=== PATIENT | male | born 1950 | race Hispanic/Latino ===

== ENCOUNTER 2016-05-03 15:13 | Inpatient (IN) | payer MEDICARE ==
[~2016-05-03] VITALS: Ht 162.6 cm; Wt 84.7 kg
[2016-05-03 15:17] VITALS: BP 154/88; PULSE 91; RESP 18; O2SAT 100
[2016-05-03 16:04] LABS: BASOPHILS % (AUTO) 0.2 % (0-3); EOSINOPHILS % (AUTO) 1.8 % (0-5); MONOCYTES % (AUTO) 7.4 % (4-12); Mean Corpuscular Hemoglobin 29.4 pg (27.0-35.0); Mean Corpuscular Volume 87.5 fL (81-100); NEUTROPHILS % (AUTO) 69.9 % (40-74); Platelet Count 252 bil/L (150-400)
[2016-05-03 16:29] VITALS: BP 154/70; PULSE 95; RESP 17; O2SAT 100
[2016-05-03 16:49] LABS: Magnesium 1.7 mg/dL (1.6-2.6)
--- NOTE | 2016-05-03 16:58 | DRSVH ---
PROCEDURE: X-RAY CHEST ONE VIEW, PORTABLE ([id number]) INDICATIONS: CHEST PAIN TECHNIQUE: One view of the chest was acquired. COMPARISON: None. FINDINGS: Surgical changes and devices: None. Lungs and pleura: No pleural effusions or pneumothorax. Lungs are clear. Mediastinum: Mediastinal contours appear normal. Heart size is normal. Bones and chest wall: No suspicious bony lesions. Overlying soft tissues appear unremarkable. IMPRESSION: Mildly reduced inspiratory volume, mild atelectasis left lung base, no pneumonia found, s ource of pain is not identified otherwise. Dictated by: Eugenio Cloud M.D. on 05/03/2016 at 16:56 Approved by: Eugenio Cloud M.D. on 05/03/2016 at 16:56
[2016-05-03 17:02] LABS: TROPONIN T < 0.010 ug/L (0.0-0.011)
[2016-05-03 18:01] VITALS: BP 140/67; PULSE 86; RESP 12; O2SAT 100
--- NOTE | 2016-05-03 19:08 | ED.REPORT ---
HPI-Chest Pain 40 and Over Date of Service May 03, 2016 ED Provider: Tate Pickard MD Pt is a 66 year old male with a hx of DM, HTN, high cholesterol and asthma presenting to the ED complaining of left chest pain onset around 1300 today lasting for about 1 hour. Associated symptoms include SOB. The pt states that the chest pain began while he was doing housework. Denies nausea, diaphoresis, cough, wheezing. The chest pain is described as a hot pressure. He reports similar symptoms 2 years ago which resolved on their own. Pt denies hx of heart problems. Pt medications: sertraline 50mg once per day, glipizide 10mg daily, lisinopril 20mg, metformin 1000 twice daily, PO pioglitazone 45mg 1/2 by mouth daily, acarbose 100mg 1/2 tablet 50mg daily before meals. Nursing Notes Stated Complaint: CHEST PAIN Chief Complaint: Chest Pain Nursing Notes Reviewed: Yes Allergies: Coded Allergies: No Known Allergies (Unverified , 05/03/16) General Time Seen by MD: 19:06 Chief Complaint Chest pain Hx Obtained From: Patient, Daughter Arrived By: Walk-in Sudden in Onset?: Yes Onset Occurred: 5 - 8 hours ago Symptom Duration: 1 - 4 hours Location: : Chest left Quality: Burning, Painful, Pressure Radiation: : Back: Does not radiate Severity: Current: No pain currently Severity: Maximum: Moderate Recent Healthcare: No recent doctor visit, No recent hospitalization Similar Sx Previous: Yes Risk Factors )( CAD Risk Stratification Diabetes mellitus Hyperlipidemia HypertensionNo Family history, No Known CAD, No Smoking Risk factors reviewed )( TAD Risk Stratification Hypertension Risk factors reviewed HEART Score HEART for MACE: Mod index of susp (1), Age 65 or over (2), 3+ CAD risk factors (2) Past Medical History Past Medical History Reports: Asthma, Diabetes mellitus, Hyperlipidemia, Hypertension Past Surgical History denies Smoking History Former Smoker (Quit many years ago) Ambulatory Status Independent Review of Systems Respiratory: Reports: Dyspnea on exertion, Shortness of breath, Denies: Non-productive cough, Wheezing Cardiovascular: Reports: Chest pain GI: Denies: Nausea, Vomiting Skin: Denies Diaphoresis Complete sys rev & neg: except as marked. Physical Exam Initial Vital Signs Vital Signs (First) Date Time Temp Pulse Resp B/P Pulse Ox O2 Delivery O2 Flow Rate FiO2 05/03/16 15:17 36.3 91 18 154/88 100 Room Air Initial VS: Reviewed Head / Eyes: Atraumatic, Normocephalic, PERRL ENT: Mucous membranes moist, Conjunctiva normal, No scleral icterus Extremities: Vascular intact, Neuro intact, No swelling, No tenderness Skin: Warm, Dry Neurologic: Alert, Oriented, Nonfocal Psychiatric: Mood/affect normal, Behavior normal, Normal thought content General/Constitutional: Awake, Alert, No acute distress, Well appearing Respiratory / Chest: Atraumatic, Breath sounds NL, Breath sounds = bilat, No respiratory distress Cardiovascular: Heart rate NL, Regular rhythm, Heart sounds NL, No gallop, No murmurs, No rubs Abdomen: Soft, Non-tender, BS normoactive Interpretation & Diagnostics Lab Results Interpretation Result Diagram: 05/03/16 1551 05/03/16 1551 Test 05/03/16 15:51 05/03/16 18:58 White Blood Count 12.2th/mm3 (3.8-10.1) Red Blood Count 3.85mil/mm3 (4.40-5.80) Hemoglobin 11.3g/dL (13.8-17.2) Hematocrit 33.7% (41.0-50.0) Mean Corpuscular Volume 87.5fL (81-100) Mean Corpuscular Hemoglobin 29.4pg (27.0-35.0) Mean Corpuscular Hemoglobin Concent 33.5% (32.0-37.0) Red Cell Distribution Width 12.5% (12.3-15.4) Platelet Count 252bil/L (150-400) Neutrophils (%) (Auto) 69.9% (40-74) Lymphocytes (%) (Auto) 20.5% (14-46) Monocytes (%) (Auto) 7.4% (4-12) Eosinophils (%) (Auto) 1.8% (0-5) Basophils (%) (Auto) 0.2% (0-3) Prothrombin Time 9.8sec (8.1-12.5) Prothromb Time International Ratio 0.92ratio Activated Partial Thromboplast Time 26.4sec (22.8-33.0) Sodium Level 136mEq/L (134-144) Potassium Level 4.8mEq/L (3.5-5.2) Chloride Level 97mEq/L (97-108) Carbon Dioxide Level 25mmol/L (18-29) Blood Urea Nitrogen 13mg/dL (8-27) Creatinine 0.58mg/dL (0.76-1.27) Estimat Glomerular Filtration Rate 149mL/min (>59) Glucose Level 215mg/dL (60-99) Calcium Level 9.0mg/dL (8.5-10.1) Magnesium Level 1.7mg/dL (1.6-2.6) Total Bilirubin 0.2mg/dL (0.0-1.2) Aspartate Amino Transf (AST/SGOT) 17U/L (0-50) Alanine Aminotransferase (ALT/SGPT) 21U/L (0-44) Alkaline Phosphatase 113U/L (25-160) Pro-B-Type Natriuretic Peptide 153.2pg/mL (0-376) Total Protein 6.8g/dL (6.4-8.4) Albumin 3.9g/dL (3.4-5.0) Thyroid Stimulating Hormone (TSH) 1.750uIU/mL (0.450-4.500) Hold Cardona Top Tube Received (Received) Troponin T < 0.010ug/L (0.0-0.011) ECG Interpretation Time: 16:30 Interpreted by: ED physician Normal ECG Interpretation: Normal ECG w/ rate of... (93), Normal sinus rhythm X-Ray Chest Interpretation Chest Xray Interpretation: IMPRESSION: Mildly reduced inspiratory volume, mild atelectasis left lung base, no pneumonia found, source of pain is not identified otherwise. Dictated by: Eugenio Cloud M.D. on 05/03/2016 at 16:56 View: Portable, 1 view Interpretation / Wet Read by: Interpret - Radiologist Re-Eval/Medical Decision Med Decision/Clinical Course 66-year-old diabetic with multiple cardiac risk factors presenting with an episode of chest pain compatible with angina. This is new onset. Initial ECG and troponin are reassuring however multiple risk factors and advanced age will admit for formal rule out and provocative testing given aspirin in the emergency department. Time of Eval: 19:20 Patient Status: Condition improved Re-Evaluation/Progress Note: Discussed medications and supplemental past medical history. Time of Eval: 19:27 Patient Status: Condition improved Re-Evaluation/Progress Note: Performed physical exam. The EKG was taken after chest pain had resolved. Time of Eval: 20:09 Patient Status: Condition improved Re-Evaluation/Progress Note: Discussed repeat troponin and plan for admission. Pt understands and agrees. Consultation : Referral / Consult Name: Rosemarie Malone MD Consulted With: Hospitalist Call Returned at: 20:12 Equipment Processer Storage: Will see patient, Agrees with plan, Accepts admit Counseled Regarding: Diagnosis, Lab results, Need for follow-up, When/why to return to ED Discharge & Departure Primary Impression: Chest pain Chest pain type: unspecified Qualified Code: R07.9 - Chest pain, unspecified Disposition: ADMITTED TO HOSPITAL Discharge Condition All VS Reviewed: Yes Condition: Improved Referrals: John Carroll MD (PCP) Angelinaibaraceli Attestation Portions of this note were transcribed by Dayami Penny. I, Dr. Pickard personally performed the history, physical exam and medical decision-making; I reviewed and confirmed the accuracy of the information in the transcribed note. Signed by : Nato Mi, 05/03/16 and 2010. copies to: John Carroll MD, Donald L MD May 03, 2016 19:08 DAYAMI PENNY May 03, 2016 19:19
[2016-05-03] MEDS ORDERED: Alum-Mag Hydrox-Simeth 30 mL Suspension PO PRN (20:50)
[2016-05-03] MEDS ORDERED: Polyethylene Glycol (PEG) 17 Gm Powder PO PRN (20:50)
[2016-05-03] MEDS ORDERED: Atropine 1 mg/10 mL (Code) Syringe IVPUSH PRN (20:50)
[2016-05-03] MEDS ORDERED: Senna-Docusate 8.6-50 mg Tablet PO PRN (20:50)
[2016-05-03] MEDS ORDERED: Ondansetron 2 mg/mL 2 mL Inj IVPUSH PRN (20:50)
[2016-05-03 21:17] LABS: INR 0.92 ratio
[2016-05-03 21:38] VITALS: BP 146/65; PULSE 83; RESP 19; O2SAT 95
--- NOTE | 2016-05-03 21:51 | PCM.HPMED ---
Subjective Date of Service May 03, 2016 Primary Provider: Admitting Physician: Primary Care Physician: John Carroll MD Attending Physician: Admit Status: From the Emergency Department, 23-Hour Observation, [facility] Telemetry Chief Complaint: Chest pain History of Present Illness: This is a 66-year-old male who has a history of type II diabetes hypertension asthma who presents to the emergency room with left-sided chest pain starting about 1 PM and lasting for about an hour. He did have some shortness of breath with it. He notes he was kind of doing some cleaning around the house when this occurred. He had no nausea with it no diaphoresis. He did feel well lightheaded with this. He was not worse with movement or inspiration. No prior history of similar. By the time the patient came here pain had resolved. Evaluation in the emergency room includes clonidine which was less than 0.010 EKG shows sinus rhythm at a rate of 93 no acute abnormalities noted. X-ray shows mildly reduced inspiratory volume mild atelectasis of the left lung base no pneumonia seen. Review of Systems: Patient denies any fevers chills or cough. All other review of systems are reviewed and are negative except for as in history of present illness. Allergies Coded Allergies: No Known Allergies (Unverified , 05/03/16) Home Medications Pt medications: sertraline 50mg once per day, glipizide 10mg daily, lisinopril 20mg, metformin 1000 twice daily, PO pioglitazone 45mg 1/2 by mouth daily, acarbose 100mg 1/2 tablet 50mg daily before meals. PMH Past Medical History Reports: Asthma, Diabetes mellitus, Hyperlipidemia, Hypertension Past Surgical History denies Social History Hx Alcohol Use: No Hx Substance Use: No Smoking Status: Former Smoker (Quit many years ago) Living Arrangement: with Family Exam Vital Signs Vital Sign - Last Date Time Temp Pulse Resp B/P Pulse Ox O2 Delivery O2 Flow Rate FiO2 05/03/16 21:38 83 19 146/65 95 Room Air 05/03/16 15:17 36.3 Exam Constitutional: Elderly man in no acute distress Head: Normocephalic atraumatic Eyes: PERRLA DC EOMI Mouth: No lesions Neck: Carotids 2+ over 4 without bruits bilaterally Chest: Clear to auscultation Cor: Regular rate and rhythm S1-S2 without murmur Abdomen: Soft nontender bowel sounds present Extremities: No pedal edema noted Skin: No rashes Psych: Mood and affect are appropriate Neuro: Alert and oriented 3, motor strength is intact bilaterally Lab and Diagnostics Labs Laboratory Tests 72 Hours Test 05/03/16 15:51 05/03/16 18:58 White Blood Count 12.2th/mm3 (3.8-10.1) Red Blood Count 3.85mil/mm3 (4.40-5.80) Hemoglobin 11.3g/dL (13.8-17.2) Hematocrit 33.7% (41.0-50.0) Mean Corpuscular Volume 87.5fL (81-100) Mean Corpuscular Hemoglobin 29.4pg (27.0-35.0) Mean Corpuscular Hemoglobin Concent 33.5% (32.0-37.0) Red Cell Distribution Width 12.5% (12.3-15.4) Platelet Count 252bil/L (150-400) Neutrophils (%) (Auto) 69.9% (40-74) Lymphocytes (%) (Auto) 20.5% (14-46) Monocytes (%) (Auto) 7.4% (4-12) Eosinophils (%) (Auto) 1.8% (0-5) Basophils (%) (Auto) 0.2% (0-3) Prothrombin Time 9.8sec (8.1-12.5) Prothromb Time International Ratio 0.92ratio Activated Partial Thromboplast Time 26.4sec (22.8-33.0) Sodium Level 136mEq/L (134-144) Potassium Level 4.8mEq/L (3.5-5.2) Chloride Level 97mEq/L (97-108) Carbon Dioxide Level 25mmol/L (18-29) Blood Urea Nitrogen 13mg/dL (8-27) Creatinine 0.58mg/dL (0.76-1.27) Estimat Glomerular Filtration Rate 149mL/min (>59) Glucose Level 215mg/dL (60-99) Calcium Level 9.0mg/dL (8.5-10.1) Magnesium Level 1.7mg/dL (1.6-2.6) Total Bilirubin 0.2mg/dL (0.0-1.2) Aspartate Amino Transf (AST/SGOT) 17U/L (0-50) Alanine Aminotransferase (ALT/SGPT) 21U/L (0-44) Alkaline Phosphatase 113U/L (25-160) Troponin T < 0.010ug/L (0.0-0.011) < 0.010ug/L (0.0-0.011) Pro-B-Type Natriuretic Peptide 153.2pg/mL (0-376) Total Protein 6.8g/dL (6.4-8.4) Albumin 3.9g/dL (3.4-5.0) Thyroid Stimulating Hormone (TSH) 1.750uIU/mL (0.450-4.500) Hold Cardona Top Tube Received (Received) Result Diagram: 05/03/16 1551 05/03/16 1551 X-Rays, CTs and MRIs Patient Name: SHAD LOU MR#: [id number] Location: [facility] [place] Ordering Phys: DOC, ED Date of Service: 05/03/16 1531 PROCEDURE: X-RAY CHEST ONE VIEW, PORTABLE ([id number]) INDICATIONS: CHEST PAIN TECHNIQUE: One view of the chest was acquired. COMPARISON: None. FINDINGS: Surgical changes and devices: None. Lungs and pleura: No pleural effusions or pneumothorax. Lungs are clear. Mediastinum: Mediastinal contours appear normal. Heart size is normal. Bones and chest wall: No suspicious bony lesions. Overlying soft tissues appear unremarkable. IMPRESSION: Mildly reduced inspiratory volume, mild atelectasis left lung base, no pneumonia found, source of pain is not identified otherwise. Dictated by: Eugenio Cloud M.D. on 05/03/2016 at 16:56 Approved by: Eugenio Cloud M.D. on 05/03/2016 at 16:56 Assessment & Plan # Chest pain, acute, present on admission Check serial opponents Echocardiogram in a.m. Pharmacological nuclear stress test in a.m. Check fasting lipid panel # Type II diabetes, chronic, present on admission Placed on subcutaneous insulin protocol and check 4 times a day blood sugars Check hemoglobin A1c # Hypertension, chronic, present on admission Monitor blood pressures while here # DVT prophylaxis Placed on subcutaneous prophylactic anticoagulant # CODE STATUS Patient is full code. Pain Evaluation: Adequate Pain Control VTE Prophylaxis: Sub-Q Heparin (Unfractionated), Other Resuscitation Status: CPR: Attempt Resuscitation Time spent 60 minutes Kubisty,Rosemarie A MD May 03, 2016 21:51
[2016-05-04] VITALS (9 sets, daily range): BP systolic 147–181; BP diastolic 61–84; PULSE 74–88; RESP 16–19; O2SAT 95–99
[2016-05-04] MEDS: Sodium Chloride LOK Flush 10 mL Syringe IVFLUSH SCH ×4 (00:30→23:49)
[2016-05-04] MEDS: 0.9% Sodium Chloride 1,000 ML IV SCH ×3 (00:30→21:47)
[2016-05-04 02:11] LABS: BASOPHILS % (AUTO) 0.2 % (0-3); EOSINOPHILS % (AUTO) 1.8 % (0-5); MONOCYTES % (AUTO) 7.3 % (4-12); Mean Corpuscular Hemoglobin 29.9 pg (27.0-35.0); Mean Corpuscular Volume 87.2 fL (81-100); NEUTROPHILS % (AUTO) 70.8 % (40-74); Platelet Count 247 bil/L (150-400)
[2016-05-04 03:00] LABS: TROPONIN T 0.01 ug/L (0.0-0.011)
[2016-05-04] MEDS: Insulin Human REGular 300 Unit/3 mL Inj SUBQ SCH ×5 (04:00→22:04)
--- NOTE | 2016-05-04 05:09 | NUR ---
Uneventful night Pt had no c/o chest pain, nausea or generalized discomfort. Frequent care checks performed.
--- NOTE | 2016-05-04 10:41 | DRSVH ---
[facility] [address] [place] [address] Echocardiogram Report Name: CLYDE LOU MStudy Date: 05/04/2016 Height: 64 in Hospital Exam Location: [facility] Weight: 192 lb Gender: Male BSA: 1.9 m2 : 1950 Age: 66 yrs BP: 155/66 mmHg Reason For Study: CHEST PAIN Ordering Physician: HOSPITALIST [facility] Performed By: Adam Ruth Referring Physician: Dr. John Carroll Interpretation Summary The left ventricle is normal in size. The ejection fraction is estimated to be 60-65%. There are no focal wall motion abnormalities. The right ventricle is normal in size and function. The right ventricular systolic pressure is estimated at 35 mmHg assuming a right atrial pressure of 3 mm Hg. Both atria are normal in size. There is no significant valvular heart disease. The aortic root is normal size. Procedure: A two-dimensional transthoracic echocardiogram with color flow and Doppler was performed. The study quality was technically adequate. There is no prior echocardiogram noted for this patient. The patient was in normal sinus rhythm during the exam. Left Ventricle: The left ventricle is normal in size. There is normal left ventricular wall thickness. The ejection fraction is estimated to be 60-65%. There are no focal wall motion abnormalities. Right Ventricle: The right ventricle is normal in size and function. Atria: Both atria are normal in size. The interatrial septum is intact with no evidence for an atrial septal defect. Mitral Valve: The mitral valve is normal in structure and function. There is mild mitral annular calcification. There is mild mitral regurgitation. Aortic Valve: The aortic valve is mildly calcified. There is discrete nodular thickening of the left coronary cusp. There is trace aortic regurgitation. Tricuspid Valve: The tricuspid valve is normal in structure and function. There is mild tricuspid regurgitation. The right ventricular systolic pressure is estimated at 35 mmHg assuming a right atrial pressure of 3 mm Hg. Pulmonic Valve: The pulmonic valve is not well visualized. There is no significant valvular heart disease. Great Vessels: The aortic root is normal size. The dimensions of the ascending aorta are normal. The aortic arch is normal in size. The pulmonary artery is normal size. The IVC is of normal diameter and collapses greater than 50% with a sniff. This suggests a low right atrial pressure of 3 mm Hg. Pericardium/ Pleura There is no pericardial effusion. There is no pleural effusion. MMode/2D Measurements & Calculations LVIDd: 4.4 cm LA dimension: 3.4 cm RA long axis Ao root diam: 3.6 cm LVIDs: 3.3 cm Aortic Jxn: 2.9 cm FS: 25.3 % LA A2 area: 18.4 cm RA area asc Aorta Diam EPSS: 0.70 cm LA A4 area: 22.4 cm IVSd: 0.98 cm LA length (vol) : 13.3 cm Ao Arch Diam LVPWd: 0.97 cm RA vol (Proximal trans.) LA vol: 59.5 ml : 34.8 ml LA vol index RA : 18.1 mm2 IVC diam: 1.4 cm LV kulkarni. diameter/BSALV sys. diameter/BSA (cm/m^2): 2.3 (cm/m^2): 1.7 Doppler Measurements & Calculations Ao V2 max MV E max ra MV E/A: 0.87 TR max ra: 284.0 cm/sec : 147.1 cm/sec : 78.4 cm/sec Pulm A Revs Dur TR max P.3 mmHg Ao max PG MV A max ra PA V2 max: 89.4 cm/sec : 8.7 mmHg : 89.7 cm/sec MV A dur PA mean P.8 mmHg Ao mean PG : 0.11 sec PA Accel Time: 0.08 sec : 4.5 mmHg MV dec time Ao V2 mean PA V2 mean Pulm A Revs Dur - MV A : 0.20 sec : 101.3 cm/sec : 64.8 cm/sec Dur: -0.01 msec Ao V2 VTI: 32.6 cmPA pr(Accel) : 41.6 mmHg Reading Physician:SARAH
[2016-05-04] MEDS ORDERED: LISI-567 PO (12:15)
[2016-05-04] MEDS ORDERED: METF1000 PO (12:15)
[2016-05-04] MEDS ORDERED: SERT50TA9 PO (12:15)
[2016-05-04] MEDS ORDERED: GLIP10TA10 PO (12:15)
[2016-05-04] MEDS ORDERED: ACAR100T2 PO (12:15)
--- NOTE | 2016-05-04 15:40 | NUR ---
spiritual care: [facility]
--- NOTE | 2016-05-04 16:26 | NUR ---
Social Work: Initial Assessment Data: Pt is a 66 y/o male admitted for chest pain resolved. Pt's PCP is Dr Carroll, pt's insurance is Medicare. Readmit score is 2. EMR reviewed. RECRUITMENT OFFICER met with pt at bedside with head of biology. Role explained. Pt states that he lives with his family in a single story home where he uses a cane and no other DME. Pt reports that he does not have a DPOA and declined information. Pt states that he does not drive, has no history of HH or SNF, no LTC or VA benefits, and is not a caregiver for another. No d/c planning needs anticipated at this time. RECRUITMENT OFFICER will continue to follow if needs arise. Assessment: Pt who is independent at baseline. Cane at base. Plan: Pt will d/c home via POV with family members. No d/c planning needs anticipated at this time. RECRUITMENT OFFICER will continue to follow if needs arise. ABRAM Graham Addendum: 05/04/16 at 1628 by JAME JARRETT Amended: Links added.
--- NOTE | 2016-05-04 17:42 | NUR ---
Case Management: Observation Brochure provided and explained to patient and both daughters at 1540, they interpreted for patient. Pt informed me he does have a supplemental insurance--and gave me a card. I brought that to registration and it was deemed only for prescriptions. I went back to room with Observation Brochure in Korean at 1650. I also informed them the [employer] was only for Rx. I gave them the [employer] phone number [phone] for them to pursue a supplemental. I also provided them with a [facility] Care Form in Korean. All questions answered. Leanna Villagran, RN
--- NOTE | 2016-05-04 18:16 | NUR ---
Hypertension patient had the resting portion of his cardiac stress test today, but was unable to complete the stress portion due to high blood pressure. patient has not had his regular dose of Lisinopril since 05/03/2016 am. patient also reported feeling anxious during the test which may have contributed to his elevated BP. Dr Morocho notified and started patient on his home dose of lisinopril and was given h a dose this afternoon. patient denies CP/SOB during shift today. continue to monitor.
--- NOTE | 2016-05-04 20:14 | NUR ---
dinner metformin and glipizide at time of this shift either medications given called pharm and they suggested both be held r/t pt had resting mibi today and will have stress mibi in AM. pts BG at dinner was 200 according to report.
--- NOTE | 2016-05-04 23:58 | PCM.PNMED ---
Subjective Date of Service May 04, 2016 Subjective Patient developed high blood pressure during the stress test today and final stress testing will be postponed until tomorrow morning. He is quite apprehensive about the test. Otherwise he has had no further chest pain and is quite comfortable. Exam Vital Signs Vital Sign - Last Date Time Temp Pulse Resp B/P Pulse Ox O2 Delivery O2 Flow Rate FiO2 05/04/16 19:15 37.1 85 19 158/76 97 Room Air Intake and Output 05/03/16 05/03/16 05/04/16 Cumulative From/Thru 15:00 23:00 07:00 05/03/16 15:17 - 05/04/16 06:46 Intake Total 208 ml 208 ml Output Total 925 ml 925 ml Balance -717 ml -717 ml Intake Oral 0 ml 0 ml IV Total 208 ml 208 ml Output Urine Total 925 ml 925 ml Exam General: Patient is in no apparent distress laying supine in bed HEENT: Head is atraumatic normocephalic. Eyes: Pupils are equally round and reactive to light and accommodation. Extraocular muscles are intact. Sclera are white anicteric. Subconjunctival mucosa is pink. Ears and nose are unremarkable. Oropharynx: There is no mucosal lesions, there is no thrush, there is no pharyngitis. Neck: Is supple, there are no nodes, or masses or tenderness. Chest: Is clear to auscultation and percussion. There are no rales, rhonchi, wheezes or rubs. Heart: Rate, rhythm is regular. There is no murmur, rub or gallop. Abdomen: Good bowel sounds are present. Abdomen is soft, nontender, no organomegaly or masses were appreciated. Extremities: Are symmetrical and well perfused. There is no edema, there is no cellulitis, no rash. Neurologic: There are no focal neurological deficits. Cranial nerves II through XII are intact. There are no sensory or motor deficits. Psychiatric: Patients mood is calm and shows no sign of agitation. Genital: Deferred Rectal: Deferred Lab and Diagnostics Result Diagram: 05/04/1614605/04/16146 X-Rays, CTs and MRIs Patient Name: SHAD LOU MR#: [id number] [place] [facility] [place] Phys: DOC, ED Date of Service: 05/03/16 1531 PROCEDURE: X-RAY CHEST ONE VIEW, PORTABLE ([id number]) INDICATIONS: CHEST PAIN TECHNIQUE: One view of the chest was acquired. COMPARISON: None. FINDINGS: Surgical changes and devices: None. Lungs and pleura: No pleural effusions or pneumothorax. Lungs are clear. Mediastinum: Mediastinal contours appear normal. Heart size is normal. Bones and chest wall: No suspicious bony lesions. Overlying soft tissues appear unremarkable. IMPRESSION: Mildly reduced inspiratory volume, mild atelectasis left lung base, no pneumonia found, source of pain is not identified otherwise. Dictated by: Eugenio Cloud M.D. on 05/03/2016 at 16:56 Approved by: Eugenio Cloud M.D. on 05/03/2016 at 16:56 Cardiac Echo Impressions Echocardiogram Report Name: CLYDE LOU MStudy Date: 05/04/2016 Height: 64 in Hospital Exam Location: [facility] Weight: 192 lb Gender: Male BSA: 1.9 m2 : 1950 Age: 66 yrs BP: 155/66 mmHg Reason For Study: CHEST PAIN Ordering Physician: HOSPITALIST [facility] Performed By: Adam Ruth Referring Physician: Dr. John Carroll Interpretation Summary The left ventricle is normal in size. The ejection fraction is estimated to be 60-65%. There are no focal wall motion abnormalities. The right ventricle is normal in size and function. The right ventricular systolic pressure is estimated at 35 mmHg assuming a right atrial pressure of 3 mm Hg. Both atria are normal in size. There is no significant valvular heart disease. The aortic root is normal size. Assessment & Plan This is a 66-year-old male who has a history of type II diabetes hypertension asthma who presents to the emergency room with left-sided chest pain starting about 1 PM and lasting for about an hour. He did have some shortness of breath with it. He notes he was kind of doing some cleaning around the house when this occurred. He had no nausea with it no diaphoresis. He did feel well lightheaded with this. He was not worse with movement or inspiration. No prior history of similar. By the time the patient came here pain had resolved. Evaluation in the emergency room includes clonidine which was less than 0.010 EKG shows sinus rhythm at a rate of 93 no acute abnormalities noted. X-ray shows mildly reduced inspiratory volume mild atelectasis of the left lung base no pneumonia seen. # Chest pain, acute, present on admission Check serial troponins which are negative so far. Echocardiogram is unremarkable so far. Pharmacological nuclear stress test in a.m. patient to complete the final portion of the study in a.m. Check fasting lipid panel # Type II diabetes, chronic, present on admission Placed on subcutaneous insulin protocol and check 4 times a day blood sugars Check hemoglobin A1c # Hypertension, chronic, present on admission Monitor blood pressures while here Start home medications today. # DVT prophylaxis Placed on subcutaneous prophylactic anticoagulant # CODE STATUS Patient is full code. Disposition: Possible discharge home tomorrow after stress test is complete. VTE Prophylaxis: Sub-Q Heparin (Unfractionated), Other VTE Mechanical Devices: Intermittant Pneumatic CD Resuscitation Status: CPR: Attempt Resuscitation [place] MD May 04, 2016 23:58
[2016-05-05] VITALS (9 sets, daily range): BP systolic 128–169; BP diastolic 71–99; PULSE 80–90; RESP 18; O2SAT 96–99
[2016-05-05] MEDS: hydrALAZINE 20 mg/mL Inj IV PRN ×2 (00:39→11:32)
--- NOTE | 2016-05-05 01:15 | NUR ---
hypertension pts BP 174/80 on right side and 168/79 on left side called MD received order for hydralazine 10mg IV q4 hours PRN for SBP greater 155 and DBP greater then 90, gave hydralazine and BP down to 154/71. will cont to monitor
[2016-05-05 03:23] LABS: APPEARANCE,URINE CLEAR (CLEAR,HAZY); COLOR,URINE YELLOW (YELLOW); OCCULT BLOOD,URINE NEGATIVE (NEGATIVE); UROBILINOGEN,URINE NORMAL (NORMAL)
[2016-05-05] MEDS: 0.9% Sodium Chloride 1,000 ML IV SCH (03:55)
--- NOTE | 2016-05-05 05:28 | NUR ---
activity pt with neuropathy in his feet he wanted to ambulate in the halls. pt up SBA tolerating walking the halls well. pt stating his feet feeling better but requesting to have SCDs off.
[2016-05-05 06:14] LABS: BASOPHILS % (AUTO) 0.4 % (0-3); EOSINOPHILS % (AUTO) 1.3 % (0-5); MONOCYTES % (AUTO) 8.2 % (4-12); Mean Corpuscular Hemoglobin 29.7 pg (27.0-35.0); Mean Corpuscular Volume 87.6 fL (81-100); NEUTROPHILS % (AUTO) 68.9 % (40-74); Platelet Count 220 bil/L (150-400)
[2016-05-05 06:32] LABS: TROPONIN T 0.01 ug/L (0.0-0.011)
[2016-05-05 06:43] LABS: Magnesium 1.8 mg/dL (1.6-2.6)
[2016-05-05] MEDS: Insulin Human REGular 300 Unit/3 mL Inj SUBQ SCH ×4 (07:30→21:08)
[2016-05-05] MEDS: Sodium Chloride LOK Flush 10 mL Syringe IVFLUSH SCH ×3 (08:30→23:45)
--- NOTE | 2016-05-05 10:02 | NUR ---
Test Pt has the rest of his stress test today at 12pm, pt will need BP prior to going down to CVL lab to ensure that his BP is not elevated. Pt updated with plan, family updated with plan.
--- NOTE | 2016-05-05 16:11 | DRSVH ---
PROCEDURE: 1 DAY PHARMACOLOGICAL STRESS TEST Rest and pharmacological stress myocardial perfusion SPECT with gated imaging and ejection fraction RADIOPHARMACEUTICAL: 11.1 mCi Tc-99m tetrafosmin IV at rest and 31.8 mCi Tc-99m tetrafosmin IV at pea k effect of pharmacological stress. A ohm-ffd-hhwwooux was performed. INDICATIONS: CHEST PAIN TECHNIQUE: Radiopharmaceutical was injected at peak stress test, and also at rest. SPECT images wer e obtained. SPECT myocardial perfusion images were displayed in short axis, horizontal long axis, an d vertical long axis views. Gated images were reviewed using [employer] software. COMPARISON: None. CARDIAC STRESS: A pharmacologic stress test was performed under the supervision of an attending staff, using an infus ion of Regadenoson. Hemodynamic data: There is normal blood pressure and heart rate response to pharmacologic stress. Symptoms: The patient denied anginal chest pain. Aminophylline: None EKG: No diagnostic changes of ischemia; no ectopy. FINDINGS: Raw data: There is good myocardial uptake of radiotracer. No significant motion artifacts. Left ventricle function: Gated images demonstrate possible hypokinesis along the inferolateral wall. Left ventricle resting end diastolic volume is 83 mL. Left ventricle stress ejection fraction is 60 %; normal range is above 45%. Myocardial perfusion: On the supine stress images, there is a moderate sized perfusion defect along the inferolateral wall with at least moderate intensity. There is also a small perfusion defect at th e apex with mild intensity. On the supine resting images the perfusion defect along the inferolateral wall that does not improve but has not resolved completely. The prone stress imaging cyst shows impr ovement in comparison to the supine stress images but does not resolved completely. IMPRESSION: Probably abnormal myocardial perfusion study. There is a persistent perfusion defect along the infero lateral wall with improvement from stress to rest as well as apical perfusion defect that is small in size and no evidence of reversibility. Prone imaging does not show any significant improvement and t here is questionable hypokinesis along the inferolateral wall. Given this, findings are possibly cons istent with ischemia/infarction involving the RCA/circumflex distribution. Apical defect could be con sistent with apical thinning which is normally a normal variant. Quantitative analysis also presumes that there is some evidence of ischemia along the inferolateral wall. Clinical correlation is recomme nded. Dictated by: López Bourgeois Jr., M.D. on 05/05/2016 at 16:09 Approved by: López Bourgeois Jr., M.D. on 05/05/2016 at 16:09
--- NOTE | 2016-05-05 16:33 | NUR ---
Test results Pt is aware that a small defect that is new, has shown up on the cardiac stress test. Dr. Oropeza ( from cardiology) is consulting on patient
--- NOTE | 2016-05-05 16:43 | PCM.PNMED ---
Subjective Date of Service May 05, 2016 Subjective reports some cough. denies any further CP or complaints. Exam Vital Signs Vital Sign - Last Date Time Temp Pulse Resp B/P Pulse Ox O2 Delivery O2 Flow Rate FiO2 05/05/16 11:45 146/76 05/05/16 08:36 36.4 80 18 97 Room Air Intake and Output 05/04/16 05/04/16 05/05/16 Cumulative From/Thru 15:00 23:00 07:00 05/03/16 15:17 - 05/05/16 06:11 Intake Total 978 ml 1220 ml 2406 ml Output Total 700 ml 1000 ml 2625 ml Balance 278 ml 220 ml -219 ml Intake Oral 240 ml 200 ml 440 ml IV Total 738 ml 1020 ml 1966 ml Output Urine Total 700 ml 1000 ml 2625 ml # Bowel Movements 0 0 0 General: Alert, Cooperative, No Acute Distress Eyes: Scleral Anicteric Mouth: Mucous Membr Moist/[place] Neck: Supple Chest & Lungs: Chest Wall Normal, Clear to auscultation & percussion Cardiovascular: Regular Rate/Rhythm Abdomen: Non-tender, Non-distended, Normoactive bowel tones, Soft Extremities: No cyanosis/clubbing/edma bilat Neurological: Grossly Neurologically Intact, Normal Speech IVs and Medications Medications Reviewed: Medications were reviewed in detail Lab and Diagnostics Result Diagram: 05/05/1651605/05/16516 X-Rays, CTs and MRIs Patient Name: SHAD LOU MR#: [id number] [place] [facility] [place] Ordering Phys: [facility] [place] Date of Service: 05/03/16 1531 PROCEDURE: X-RAY CHEST ONE VIEW, PORTABLE ([id number]) INDICATIONS: CHEST PAIN TECHNIQUE: One view of the chest was acquired. COMPARISON: None. FINDINGS: Surgical changes and devices: None. Lungs and pleura: No pleural effusions or pneumothorax. Lungs are clear. Mediastinum: Mediastinal contours appear normal. Heart size is normal. Bones and chest wall: No suspicious bony lesions. Overlying soft tissues appear unremarkable. IMPRESSION: Mildly reduced inspiratory volume, mild atelectasis left lung base, no pneumonia found, source of pain is not identified otherwise. Dictated by: Eugenio Colud M.D. on 05/03/2016 at 16:56 Approved by: Eugenio Cloud M.D. on 05/03/2016 at 16:56 Cardiac Echo Impressions Echocardiogram Report Name: CLYDE LOU MStudy Date: 05/04/2016 Height: 64 in Hospital Exam Location: [facility] Weight: 192 lb Gender: Male BSA: 1.9 m2 : 1950 Age: 66 yrs BP: 155/66 mmHg Reason For Study: CHEST PAIN Ordering Physician: HOSPITALIST [facility] Performed By: Adam Ruth Referring Physician: Dr. John Carroll Interpretation Summary The left ventricle is normal in size. The ejection fraction is estimated to be 60-65%. There are no focal wall motion abnormalities. The right ventricle is normal in size and function. The right ventricular systolic pressure is estimated at 35 mmHg assuming a right atrial pressure of 3 mm Hg. Both atria are normal in size. There is no significant valvular heart disease. The aortic root is normal size. Assessment & Plan 66-year-old male who has a history of type II diabetes hypertension asthma who presents to the emergency room with left-sided chest pain starting about 1 PM and lasting for about an hour. He did have some shortness of breath with it. He notes he was kind of doing some cleaning around the house when this occurred. He had no nausea with it no diaphoresis. He did feel well lightheaded with this. He was not worse with movement or inspiration. No prior history of similar. By the time the patient came here pain had resolved. Evaluation in the emergency room includes clonidine which was less than 0.010 EKG shows sinus rhythm at a rate of 93 no acute abnormalities noted. X-ray shows mildly reduced inspiratory volume mild atelectasis of the left lung base no pneumonia seen. # Chest pain, acute, present on admission. resolved - ruled out for ACS by negative Trop - Echocardiogram unremarkable - stress test noted to be abnormal today - cardiology consulted today. will f/u w/ recs # Type II diabetes, chronic, present on admission - poorly controlled. HgA1C 10.8 - hold metformin and Glipizide while in hospital - c/w ISS - diabetic teaching - will likely need to be started on Insulin therapy as outpatient which will defer to PCP as outpatient. # Hypertension, chronic, present on admission. poorly controlled - c/w Lisinopril and titrate up - consider starting BB as well. will f/u w/ cardiology consult. # Low grade fever this morning with mild leukocytosis - CXR negative - UA negative - pt denies any symptoms suggestive of acute infection - He notes that his cough is due to his asthma - check blood culture - if further fever will consider repeat workup and possible respiratory viral panel # History of asthma. stable - ? if cough from Lisinopril - start albuterol prn Dispo: 1-2 days VTE Prophylaxis: Sub-Q Heparin (Unfractionated), Other VTE Mechanical Devices: Intermittant Pneumatic CD Resuscitation Status: CPR: Attempt Resuscitation Time spent 35 min Jesús Magaña May 05, 2016 16:43
--- NOTE | 2016-05-05 18:50 | NUR ---
NPO after midnight Checkroom Attendant at bed side and marketing writer spoke to the patient. patient will be NPO after midnight for a procedure tomorrow. blood sugar before dinner 200. patient ordered dinner while survey director present and having meal at this time. Insulin given as ordered per sliding scale. family at the bed side. notified oncoming shift that patient would like a shower after dinner. denies pain or discomfort. IV to left hand saline locked. independent with all transfers. stable mood. uses urinal. continue to monitor.
--- NOTE | 2016-05-05 19:01 | NUR ---
Case Management: COS to IP. IMM (written in Welsh) explained to patient using his daughter as axle turner at 1835, all questions answered. Signed copy placed in chart, copy given to patient. Leanna Villagran RN
[2016-05-06] VITALS (18 sets, daily range): BP systolic 117–189; BP diastolic 59–93; PULSE 77–89; RESP 16–20; O2SAT 95–100
[2016-05-06] MEDS: hydrALAZINE 20 mg/mL Inj IV PRN (02:06)
[2016-05-06] MEDS: 0.9% Sodium Chloride 1,000 ML IV SCH ×2 (06:50→17:37)
--- NOTE | 2016-05-06 06:51 | NUR ---
NPO NPO since midnight per orders. Patient aware and cooperative. Currently resting without any complaints.
[2016-05-06] MEDS: Insulin Human REGular 300 Unit/3 mL Inj SUBQ SCH ×4 (07:30→22:19)
--- NOTE | 2016-05-06 07:31 | CONS ---
[address] [address] CONSULTATION REPORT PATIENT: CLYDE LOU : 1950 MR#: [id number] ADMIT: 05/04/2016 JOB ID: [id number] DATE OF SERVICE: 05/05/2016 REQUESTING PHYSICIAN: Jesús Magaña MD REASON FOR EVALUATION: Abnormal stress test. HISTORY: The patient is a 66-year-old speaking man with history of diabetes for over 20 years, hypertension, hypercholesterolemia, obesity and possible sleep apnea. He has never smoked. The patient is physically inactive. He was in his usual state of health until two days ago when he developed central chest discomfort after bringing Melanie tree to the trash and cleaning up his back yard in the cold air. It was pressure-type. He rated it about 8/10. It lasted for about 1 hour before it subsided spontaneously. It was associated with shortness of breath and palpitation. He denies diaphoresis or dizziness. The patient presented to emergency department and was admitted to the hospital. PAST MEDICAL HISTORY: 1. Diabetes mellitus for 20 years. 2. Hypertension. 3. Hypercholesterolemia. 4. Asthma. SURGERY: 1. Left shoulder surgery. 2. Some kind of eye surgery that involved his retina. MEDICATIONS PRIOR TO HOSPITALIZATION: 1. Sertraline 50 mg daily. 2. Glipizide 10 mg daily. 3. Lisinopril 20 mg daily. 4. Metformin 1,000 mg twice daily. 5. Pioglitazone 45 mg half tablet daily. 6. Acarbose 100 mg half tablet before meals. ALLERGIES: No known allergies. SOCIAL HISTORY: He lives with his in [place]. He has never smoked. He denies alcohol. FAMILY HISTORY: No history of premature coronary artery disease. REVIEW OF SYSTEMS: All 10 systems are reviewed and pertinent for him having a slip and fall in the bathroom while he was visiting [place] one and a half years ago. He has dizziness ever since. He also has intention tremor. PHYSICAL EXAMINATION: Reveals a pleasant, obese male, appearing in no acute distress. Temperature is 37.0. Blood pressure is 144/76. Pulse 86. Body weight is 85.9 kg. Head and face have normal configuration. Anicteric sclerae. Moist mucosa. Neck supple. No jugular venous distention or carotid bruits. Chest: Normal expansion. Lungs are clear to auscultation. Heart: The first and second heart sounds normal. No murmur. Abdomen: Obese, nontender and without hepatosplenomegaly. Back: No CVA tenderness. Extremities: No clubbing, cyanosis, or edema. Peripheral pulses are diminished. Neurology: Awake and oriented x3. EKG showed normal sinus rhythm. Normal EKG. BLOOD TESTS: Show hemoglobin 10.5, WBC 11.3, platelets 220. Sodium 130, potassium 4.0, chloride 101, bicarb 25, BUN 10, creatinine 0.54, glucose 195, troponin less than 0.01. Cholesterol 202, triglycerides 226, HDL 36, LDL 120, hemoglobin A1c 10.8. Echocardiogram on May 04, 2016 showed normal left ventricular size with ejection fraction 60% to 65%. Normal right ventricle and both atria. No significant valvular heart disease. Pharmacologic stress sestamibi showed probably abnormal study with persistent perfusion defect along the inferolateral wall, possibly consistent with ischemia/infarction involving the right coronary artery/circumflex distribution. IMPRESSION: 1. Chest discomfort of uncertain etiology. 2. Abnormal pharmacologic stress sestamibi. 3. Uncontrolled diabetes with a hemoglobin A1c of 10.8. 4. Hypercholesterolemia. 5. Hypertension. 6. Obesity with BMI of 32.5 kg/m2. 7. Obstructive sleep apnea. 8. Physical inactivity. PLAN: I will start the patient on atorvastatin 20 mg daily. Metformin and Lovenox will be withheld. I will arrange for the patient to undergo coronary angiogram and possible percutaneous coronary intervention. The risks and benefits of the procedure have been explained to the patient. He understands and agrees to proceed with the procedure. I suspect that he has a high likelihood to have three-vessel coronary artery disease in view of his longstanding uncontrolled diabetes. TERESO
[2016-05-06] MEDS ORDERED: Heparin 5,000 Units/500 mL NS Premix IV ONE (08:39)
[2016-05-06] MEDS ORDERED: Nitroglycerin 50,000 mcg/250 mL D5W Premix IV ONE (08:41)
--- NOTE | 2016-05-06 09:00 | NUR ---
transfer to [facility] laboratory Pt taken in bed with 3 attendants to [facility]. Attempted IV x2, [facility] staff able to place. Aspirin given per direction of engineer geophysical laboratory staff. non morse intercept technician notified.
[2016-05-06] MEDS ORDERED: fentaNYL-PF 50 mCg/mL 2 mL Inj ONE (09:20)
[2016-05-06] MEDS ORDERED: Heparin 1,000 Unit/mL 10 mL Inj ONE (09:20)
[2016-05-06] MEDS ORDERED: Labetalol 5 mg/mL 20 mL Inj ONE (09:30)
[2016-05-06] MEDS ORDERED: hydrALAZINE 20 mg/mL Inj ONE (09:32)
--- NOTE | 2016-05-06 10:33 | CS94 ---
[place] [id number] DIAGNOSTIC CARDIAC CATHETERIZATION PATIENT: CLYDE LOU : 1950 MR#: [id number] ADMIT: 05/04/2016 JOB ID: [id number] SERVICE DATE: 05/06/2016 PATIENT PROFILE: The patient is a 66-year-old male with history of diabetes, hypertension, hyperlipidemia, obesity and sleep apnea. He presented with acute coronary syndrome. PROCEDURE: 1. Retrograde left heart catheterization. 2. Selective coronary angiography. 3. Left ventricular angiogram. VASCULAR CLOSURE DEVICE: Perclose. COMPLICATIONS: None. METHOD: Retrograde left heart catheterization was performed from the right groin under 1% lidocaine local anesthesia using a 6-Welsh sheath. Selective coronary angiogram was performed in multiple projections, including cranial and caudal angulations with hand injected contrast via JL4 and 3DRC catheters. A 6-Welsh angulated pigtail catheter was advanced to the left ventricle and left ventricular angiogram was performed in the 30 degree PATTERSON view by injecting contrast at the rate of 12 cc/second for 3 seconds. This catheter was withdrawn. Right femoral angiogram was performed. Following sheath removal, hemostasis was achieved by using a StarClose device. The patient tolerated the procedure well. He was transferred to [facility] in good condition. TOTAL CONTRAST USED: 70 cc. FLUOROSCOPY TIME: 1.1 minutes. RESULTS: 1. Selective coronary angiogram. a. The coronary arteries has diffuse calcification. b. The left main coronary artery has distal calcification with minor irregularity of 10% stenosis. c. The left anterior descending artery has diffuse nuywmqjy-hv-yytkxn calcification with long 60%-70% stenosis in the proximal portion and focal 70% stenosis in the mid portion. The diagonal branch is small and has diffuse disease. d. The circumflex artery has long 60%- 70% stenosis in the mid portion. The first obtuse marginal branch has 60% stenosis in the proximal portion and 85% stenosis in the mid portion. e. The dominant right coronary artery has moderate calcification with a focal 50% stenosis in the mid portion and 95% stenosis in the distal portion. 2. Left ventricular angiogram demonstrates normal left ventricular systolic function (visually estimated ejection fraction 65%). There is no wall motion abnormality. There is no mitral regurgitation. 3. There is no gradient across the aortic valve on catheter withdrawal. 4. Aortic pressure is 151/65 mmHg. Left ventricular pressure is 151/8 mmHg. 5. Left ventricular end-diastolic pressure is 22 mmHg. CONCLUSION: 1. Diffuse severe triple-vessel coronary artery disease. 2. Left ventricular ejection fraction 65%. 3. Left ventricular end-diastolic pressure is 22 mmHg. MTDD
[2016-05-06] MEDS ORDERED: HYDROcodone-APAP 5-325 mg Tablet PO PRN (12:30)
[2016-05-06] MEDS ORDERED: Atropine 1 mg/10 mL (Code) Syringe IVPUSH PRN (12:30)
[2016-05-06] MEDS ORDERED: Sodium Chloride LOK Flush 10 mL Syringe IVFLUSH PRN (12:30)
[2016-05-06] MEDS ORDERED: Ondansetron 2 mg/mL 2 mL Inj IVPUSH PRN (12:30)
[2016-05-06] MEDS ORDERED: 0.9% Sodium Chloride 250 ML BOLUS IV PRN (12:30)
[2016-05-06] MEDS ORDERED: 0.9% Sodium Chloride 400 ML (4 HRS) IV ONE (12:30)
--- NOTE | 2016-05-06 13:30 | NUR ---
Return to room Pt brought to room in bed. Right groin site intact, no bruising or tenderness noted. star stop in place. +cms good pedal pulses Addendum: 05/06/16 at 1500 by AUBREE CARRASQUILLO RN pt returned to room at 1215.
--- NOTE | 2016-05-06 13:32 | NUR ---
transfer to [id number] report called to Katty Martínez RN, daughter updated on plan of care. VSS and within expected parameters throughout recovery of heart cath, groin site soft non tender, no signs of bleeding or discomfort. Pt transferred at approximately 1200.
--- NOTE | 2016-05-06 16:02 | NUR ---
transfer family notified that transfer will not occur until tomorrow, per nursing automotive tire testing supervisor. MD available to intake tomorrow.
--- NOTE | 2016-05-06 22:56 | PCM.PNMED ---
Subjective Date of Service May 06, 2016 Subjective The patient was seen after his cardiac catheterization and is having no chest pain is lying comfortably in bed with his family around the bed. He has no new complaints. He has no shortness of breath and again no chest pain. Exam Vital Signs Vital Sign - Last Date Time Temp Pulse Resp B/P Pulse Ox O2 Delivery O2 Flow Rate FiO2 05/06/16 19:55 37.2 87 16 149/73 97 Room Air Intake and Output 05/05/16 05/05/16 05/06/16 Cumulative From/Thru 15:00 23:00 07:00 05/03/16 15:17 - 05/06/16 06:15 Intake Total 500 ml 536 ml 3442 ml Output Total 3 ml 5 ml 2633 ml Balance 497 ml 531 ml 809 ml Intake Oral 500 ml 536 ml 1476 ml IV Total 0 ml 1966 ml Output Urine Total 3 ml 5 ml 2633 ml # Bowel Movements 0 0 Exam General: Patient is in no apparent distress laying supine in bed HEENT: Head is atraumatic normocephalic. Eyes: Pupils are equally round and reactive to light and accommodation. Extraocular muscles are intact. Sclera are white anicteric. Subconjunctival mucosa is pink. Ears and nose are unremarkable. Oropharynx: There is no mucosal lesions, there is no thrush, there is no pharyngitis. Neck: Is supple, there are no nodes, or masses or tenderness. Chest: Is clear to auscultation and percussion. There are no rales, rhonchi, wheezes or rubs. Heart: Rate, rhythm is regular. There is no new murmur, rub or gallop. Abdomen: Good bowel sounds are present. Abdomen is obese, soft, nontender, no organomegaly or masses were appreciated. Extremities: Are symmetrical and well perfused. There is no edema, there is no cellulitis, no rash. Neurologic: There are no focal neurological deficits. Cranial nerves II through XII are intact. There are no sensory or motor deficits. Psychiatric: Patients mood is calm and shows no sign of agitation. Genital: Deferred Rectal: Deferred Lab and Diagnostics Result Diagram: 05/05/1651605/05/16516 X-Rays, CTs and MRIs Patient Name: SHAD LOU MR#: [id number] Location: [facility] Ordering Phys: DOC, ED Date of Service: 05/03/16 1531 PROCEDURE: X-RAY CHEST ONE VIEW, PORTABLE ([id number]) INDICATIONS: CHEST PAIN TECHNIQUE: One view of the chest was acquired. COMPARISON: None. FINDINGS: Surgical changes and devices: None. Lungs and pleura: No pleural effusions or pneumothorax. Lungs are clear. Mediastinum: Mediastinal contours appear normal. Heart size is normal. Bones and chest wall: No suspicious bony lesions. Overlying soft tissues appear unremarkable. IMPRESSION: Mildly reduced inspiratory volume, mild atelectasis left lung base, no pneumonia found, source of pain is not identified otherwise. Dictated by: Eugenio Cloud M.D. on 05/03/2016 at 16:56 Approved by: Eugenio Cloud M.D. on 05/03/2016 at 16:56 Cardiac Echo Impressions Echocardiogram Report Name: CLYDE LOU MStudy Date: 05/04/2016 Height: 64 in Hospital Exam Location: [facility] Weight: 192 lb Gender: Male BSA: 1.9 m2 : 1950 Age: 66 yrs BP: 155/66 mmHg Reason For Study: CHEST PAIN Ordering Physician: HOSPITALIST [facility] Performed By: Adam Ruth Referring Physician: Dr. John Carroll Interpretation Summary The left ventricle is normal in size. The ejection fraction is estimated to be 60-65%. There are no focal wall motion abnormalities. The right ventricle is normal in size and function. The right ventricular systolic pressure is estimated at 35 mmHg assuming a right atrial pressure of 3 mm Hg. Both atria are normal in size. There is no significant valvular heart disease. The aortic root is normal size. Assessment & Plan 66-year-old male who has a history of type II diabetes hypertension asthma who presents to the emergency room with left-sided chest pain starting about 1 PM and lasting for about an hour. He did have some shortness of breath with it. He notes he was kind of doing some cleaning around the house when this occurred. He had no nausea with it no diaphoresis. He did feel well lightheaded with this. He was not worse with movement or inspiration. No prior history of similar. By the time the patient came here pain had resolved. Evaluation in the emergency room includes clonidine which was less than 0.010 EKG shows sinus rhythm at a rate of 93 no acute abnormalities noted. X-ray shows mildly reduced inspiratory volume mild atelectasis of the left lung base no pneumonia seen. # Chest pain, acute, present on admission. resolved - Ruled out for ACS by negative Trop - Echocardiogram unremarkable - Stress test noted to be abnormal today - Cardiology consulted and patient taken to the cardiac catheterization lab. The results are as follows: CONCLUSION: 1. Diffuse severe triple-vessel coronary artery disease. 2. Left ventricular ejection fraction 65%. 3. Left ventricular end-diastolic pressure is 22 mmHg. Patient will need referral to cardiothoracic surgeon at [facility] for possible triple-vessel coronary artery bypass graft surgery. # Type II diabetes, chronic, present on admission - Poorly controlled. HgA1C 10.8 - Hold metformin and Glipizide while in hospital - Continue with insulin sliding scale coverage - Continue diabetic teaching - Patient will likely need to be started on Insulin therapy as outpatient which will defer to PCP as outpatient. # Hypertension, chronic, present on admission. poorly controlled - c/w Lisinopril and titrate up - consider starting BB as well. will f/u w/ cardiology consult. # Low grade fever this morning with mild leukocytosis - CXR negative - UA negative - pt denies any symptoms suggestive of acute infection - He notes that his cough is due to his asthma - check blood culture - if further fever will consider repeat workup and possible respiratory viral panel # History of asthma. stable - ? if cough from Lisinopril - start albuterol prn Dispo: Plan for transfer to [facility] tomorrow for cardiothoracic surgery evaluation. Pain Evaluation: Adequate Pain Control VTE Prophylaxis: Sub-Q Heparin (Unfractionated), Other VTE Mechanical Devices: Intermittant Pneumatic CD Resuscitation Status: CPR: Attempt Resuscitation RashawnGet MD May 06, 2016 22:56
[2016-05-07] MEDS: 0.9% Sodium Chloride 1,000 ML IV SCH (02:00)
[2016-05-07 04:52] VITALS: BP 155/74; PULSE 83; RESP 18; O2SAT 98
--- NOTE | 2016-05-07 04:52 | NUR ---
IV Leak Pt c/o leaking IV, Redressed and connections checked and tightened. Pt reports it is no longer leaking.
[2016-05-07 05:23] VITALS: PULSE 85
[2016-05-07 08:00] VITALS: BP 178/85; PULSE 83; RESP 20; O2SAT 96
[2016-05-07 08:08] LABS: BASOPHILS % (AUTO) 0.3 % (0-3); EOSINOPHILS % (AUTO) 3.5 % (0-5); MONOCYTES % (AUTO) 9.6 % (4-12); Mean Corpuscular Hemoglobin 29.7 pg (27.0-35.0); Mean Corpuscular Volume 87.9 fL (81-100); NEUTROPHILS % (AUTO) 53.8 % (40-74); Platelet Count 230 bil/L (150-400)
[2016-05-07] MEDS: Insulin Human REGular 300 Unit/3 mL Inj SUBQ SCH (08:30)
--- NOTE | 2016-05-07 09:20 | NUR ---
Report/transfer Attempted to give report to Manjinder at [facility] - he will return call. Report given for ALS transport, 3 attendants. Tele notified of transfer SR 70-80's. Family at bedside, will follow to transferred hospital. All belongings taken. Addendum: 05/07/16 at 0923 by AUBREE CARRASQUILLO RN IV left wrist and Right AC left in place. Addendum: 05/07/16 at 0942 by AUBREE CARRASQUILLO RN [phone] Manjinder returned call, report given. Answered all questions.
--- NOTE | 2016-05-07 23:30 | PCM.DC.MED ---
Discharge Summary Date of Service May 07, 2016 Dates of Hospitalization Date of Hospital Admission May 04, 2016 at 00:58 Date of Discharge: May 07, 2016 Providers: Admitting Physician: Rosemarie Malone MD Primary Care Physician: John Carroll MD Attending Physician: Rosemarie Malone MD Diagnosis at Time of Discharge Diagnosis at Time of Discharge Triple-vessel coronary artery disease Consultations Cardiology with Dr. Oropeza Procedures XRay, CTs & MRIs Patient Name: SHAD LOU MR#: [id number] [place] [facility] [place] Ordering Phys: WICHO PUENTE MD Date of Service: 05/03/16 1531 PROCEDURE: X-RAY CHEST ONE VIEW, PORTABLE ([id number]) INDICATIONS: CHEST PAIN TECHNIQUE: One view of the chest was acquired. COMPARISON: None. FINDINGS: Surgical changes and devices: None. Lungs and pleura: No pleural effusions or pneumothorax. Lungs are clear. Mediastinum: Mediastinal contours appear normal. Heart size is normal. Bones and chest wall: No suspicious bony lesions. Overlying soft tissues appear unremarkable. IMPRESSION: Mildly reduced inspiratory volume, mild atelectasis left lung base, no pneumonia found, source of pain is not identified otherwise. Dictated by: Eugenio Cloud M.D. on 05/03/2016 at 16:56 Approved by: Eugenio Cloud M.D. on 05/03/2016 at 16:56 Cardiac Echo Impression Echocardiogram Report Name: CLYDE LOU MStudy Date: 05/04/2016 Height: 64 in Hospital Exam Location: [facility] Weight: 192 lb Gender: Male BSA: 1.9 m2 : 1950 Age: 66 yrs BP: 155/66 mmHg Reason For Study: CHEST PAIN Ordering Physician: [facility]PITALIST [facility] Performed By: Adam Ruth Referring Physician: Dr. John Carroll Interpretation Summary The left ventricle is normal in size. The ejection fraction is estimated to be 60-65%. There are no focal wall motion abnormalities. The right ventricle is normal in size and function. The right ventricular systolic pressure is estimated at 35 mmHg assuming a right atrial pressure of 3 mm Hg. Both atria are normal in size. There is no significant valvular heart disease. The aortic root is normal size. Brief History This is a 66-year-old male who has a history of type II diabetes hypertension asthma who presents to the emergency room with left-sided chest pain starting about 1 PM and lasting for about an hour. He did have some shortness of breath with it. He notes he was kind of doing some cleaning around the house when this occurred. He had no nausea with it no diaphoresis. He did feel well lightheaded with this. He was not worse with movement or inspiration. No prior history of similar. By the time the patient came here pain had resolved. Evaluation in the emergency room includes clonidine which was less than 0.010 EKG shows sinus rhythm at a rate of 93 no acute abnormalities noted. X-ray shows mildly reduced inspiratory volume mild atelectasis of the left lung base no pneumonia seen. Patient was admitted to the hospital service for further evaluation and treatment. Hospital Course 66-year-old male who has a history of type II diabetes hypertension asthma who presents to the emergency room with left-sided chest pain starting about 1 PM and lasting for about an hour. He did have some shortness of breath with it. He notes he was kind of doing some cleaning around the house when this occurred. He had no nausea with it no diaphoresis. He did feel well lightheaded with this. He was not worse with movement or inspiration. No prior history of similar. By the time the patient came here pain had resolved. Evaluation in the emergency room includes clonidine which was less than 0.010 EKG shows sinus rhythm at a rate of 93 no acute abnormalities noted. X-ray shows mildly reduced inspiratory volume mild atelectasis of the left lung base no pneumonia seen. # Chest pain, acute, present on admission. resolved - Ruled out for ACS by negative Trop - Echocardiogram unremarkable - Stress test noted to be abnormal today - Cardiology consulted and patient taken to the cardiac catheterization lab. The results are as follows: CONCLUSION: 1. Diffuse severe triple-vessel coronary artery disease. 2. Left ventricular ejection fraction 65%. 3. Left ventricular end-diastolic pressure is 22 mmHg. Patient will need referral to cardiothoracic surgeon at [facility] for possible triple-vessel coronary artery bypass graft surgery. # Type II diabetes, chronic, present on admission - Poorly controlled. HgA1C 10.8 - Hold metformin and Glipizide while in hospital - Continue with insulin sliding scale coverage - Continue diabetic teaching - Patient will likely need to be started on Insulin therapy as outpatient which will defer to PCP as outpatient. # Hypertension, chronic, present on admission. poorly controlled - c/w Lisinopril and titrate up - consider starting BB as well. will f/u w/ cardiology consult. # Low grade fever this morning with mild leukocytosis - CXR negative - UA negative - pt denies any symptoms suggestive of acute infection - He notes that his cough is due to his asthma - check blood culture - if further fever will consider repeat workup and possible respiratory viral panel # History of asthma. stable - ? if cough from Lisinopril - start albuterol prn Dispo: Plan for transfer to in [place] for cardiothoracic surgery evaluation. Exam Vital Signs (Last) Date Time Temp Pulse Resp B/P Pulse Ox O2 Delivery O2 Flow Rate FiO2 05/07/16 08:00 37.1 83 20 178/85 96 Room Air Exam Patient was not seen today prior to transfer. Test 05/03/16 15:51 05/04/16 01:47 05/05/16 02:45 05/05/16 05:17 Prothrombin Time 9.8sec (8.1-12.5) Prothromb Time International Ratio 0.92ratio Activated Partial Thromboplast Time 26.4sec (22.8-33.0) Hemoglobin A1c 10.8% (4.8-5.6) Pro-B-Type Natriuretic Peptide 153.2pg/mL (0-376) Thyroid Stimulating Hormone (TSH) 1.750uIU/mL (0.450-4.500) Hold Cardona Top Tube Received (Received) Triglycerides Level 226mg/dL (0-149) Cholesterol Level 202mg/dL (100-199) LDL Cholesterol, Calculated 120.800mg/dL (0-99) VLDL Cholesterol 45.200mg/dL HDL Cholesterol 36mg/dL (>39) Cholesterol/HDL Ratio 5.61 (0.0-4.4) Urine Color Yellow (YELLOW) Urine Appearance Clear (CLEAR,HAZY) Urine pH 7.0 (5.0-8.0) Urine Specific Stephenson 1.015 (1.003-1.035) Urine Protein Negativemg/dL (NEG,TRACE) Urine Glucose (UA) 500mg/dL (NEGATIVE) Urine Ketones Negativemg/dL (NEGATIVE) Urine Occult Blood Negative (NEGATIVE) Urine Nitrite Negative (NEGATIVE) Urine Bilirubin Negative (NEGATIVE) Urine Urobilinogen Normalmg/dL (NORMAL) Urine Leukocyte Esterase Negative (NEGATIVE) Urine RBC 0-2/hpf (0-2) Urine WBC 0-5/hpf (0-5) Urine Epithelial Cells Occasional/hpf (NONE-MOD) Urine Crystals None seen (NONE SEEN) Urine Bacteria None/hpf (NONE-FEW) Urine Hyaline Casts None/lpf (NONE) Urine Granular Casts None seen (NONE SEEN) Urine Waxy Casts None seen (NONE SEEN) Urine Red Blood Cell Casts None seen (NONE SEEN) Urine White Blood Cell Casts None seen (NONE SEEN) Urine Mucus None seen (None Seen) Urine Trichomonas None seen (NONE SEEN) Urine Yeast None (NONE SEEN) Urine Culture Reflexed Not indicated Total Bilirubin 0.3mg/dL (0.0-1.2) Aspartate Amino Transf (AST/SGOT) 13U/L (0-50) Alanine Aminotransferase (ALT/SGPT) 16U/L (0-44) Alkaline Phosphatase 77U/L (25-160) Troponin T 0.010ug/L (0.0-0.011) Total Protein 6.4g/dL (6.4-8.4) Albumin 3.8g/dL (3.4-5.0) Procalcitonin < 0.05ng/mL (See Comment) Test 05/07/16 07:24 05/07/16 08:06 White Blood Count 7.7th/mm3 (3.8-10.1) Red Blood Count 3.40mil/mm3 (4.40-5.80) Hemoglobin 10.1g/dL (13.8-17.2) Hematocrit 29.9% (41.0-50.0) Mean Corpuscular Volume 87.9fL (81-100) Mean Corpuscular Hemoglobin 29.7pg (27.0-35.0) Mean Corpuscular Hemoglobin Concent 33.8% (32.0-37.0) Red Cell Distribution Width 12.5% (12.3-15.4) Platelet Count 230bil/L (150-400) Neutrophils (%) (Auto) 53.8% (40-74) Lymphocytes (%) (Auto) 32.4% (14-46) Monocytes (%) (Auto) 9.6% (4-12) Eosinophils (%) (Auto) 3.5% (0-5) Basophils (%) (Auto) 0.3% (0-3) Magnesium Level 1.9mg/dL (1.6-2.6) Sodium Level 136mEq/L (134-144) Potassium Level 4.4mEq/L (3.5-5.2) Chloride Level 101mEq/L (97-108) Carbon Dioxide Level 20mmol/L (18-29) Blood Urea Nitrogen 14mg/dL (8-27) Creatinine 0.58mg/dL (0.76-1.27) Estimat Glomerular Filtration Rate 149mL/min (>59) Glucose Level 258mg/dL (60-99) Calcium Level 8.7mg/dL (8.5-10.1) Discharge Medications Discharge Medications Acarbose (Acarbose) 100 Mg Tablet 50 MG PO TIDWM (Reported) Glipizide (Glipizide) 10 Mg Tablet 10 MG PO BID (Reported) Lisinopril (Lisinopril) 20 Mg Tablet 20 MG PO DAILY (Reported) Metformin (Glucophage) 1,000 Mg Tablet 1,000 MG PO BID (Reported) Sertraline HCl (Sertraline) 50 Mg Tablet 50 MG PO DAILY (Reported) Followup Plan Disposition: Patient was transferred to in [facility] for cardiothoracic surgery evaluation. Follow-up Provider: John Carroll MD Follow-up with PCP in: 2 weeks Provider: [place] MD Follow-up in: 2 weeks Time spent Less than 30 minutes of time was spent on this discharge. Get Morocho MD May 07, 2016 23:30
== END 2016-05-07 09:16 | disposition short-term general hospital (02) | DRG 287 ==
LOC: SED 15:13 → OFED 05-04 00:58 → OBSVTOIN 05-04 00:58 → MERGE 05-04 00:58 → INTOOBSV 05-04 00:58 → MOC 05-04 09:08
PROVIDERS: ADMIT Specialist; ATTEND Specialist
PROC: 4A023N7 Measurement of Cardiac Sampling and Pressure, Left Heart, Percutaneous Approach (ICD-10-PCS; principal; 2016-05-06)
PROC: B2151ZZ Fluoroscopy of Left Heart using Low Osmolar Contrast (ICD-10-PCS; 2016-05-06)
PROC: B2111ZZ Fluoroscopy of Multiple Coronary Arteries using Low Osmolar Contrast (ICD-10-PCS; 2016-05-06)
DX: I25.10 Atherosclerotic heart disease of native coronary artery without angina pectoris (principal); E11.65 Type 2 diabetes mellitus with hyperglycemia; I10 Essential (primary) hypertension; E78.5 Hyperlipidemia, unspecified; J45.909 Unspecified asthma, uncomplicated; E66.9 Obesity, unspecified; Z68.32 Body mass index [BMI] 32.0-32.9, adult